=== PATIENT | female | born 1960 | race Caucasian/White ===

== ENCOUNTER → 2017-01-10 | Outpatient (CLI) | payer BC ==
--- NOTE | ~2017-01-10 | CT113 ---
[facility] A Service of [facility] RADIOLOGY TEXT RESULTS PATIENT: FLORY JURADO LOCATION: [facility] : 58 UNIT #: [id number] AGE: [address]: HUGO STEWART MD SEX: F ORDER DR: [id number] [facility]. [place], [place] [address] [id number] O MR#: [id number] Acc #: [id number] NAME: FLORY JURADO : 1960 SEX: F STUDY DATE/TIME: 01/10/2017 16:46 UNIT: [facility] ROOM: STUDY DESCRIPTION: CT Sinuses Wo Contrast Attending Physician: Hugo Stewart M.D. Referring Physician: Hugo Stewart M.D. Ordering Physician: Hugo Stewart M.D. Primary Care Physician: Hugo Stewart M.D. MEDICAL IMAGING REPORT This report is preliminary unless electronic signature is present EXAM Sinus CT. HISTORY Upper respiratory infection, recurrent sinus infections beginning July 2016. TECHNIQUE Thin section imaging was obtained through the sinuses and evaluated at bone window with multiplanar reformats. This CT exam was performed with one or more of the following radiation dose reduction techniques: automatic exposure control, adjustment of mA and/or kV according to patient size, and iterative reconstruction. FINDINGS The sinuses are clear. There is no evidence of ostiomeatal obstruction on either side. The septum deviates to the right. No accessory air cells are seen. No masses or destructive bone lesions are noted. IMPRESSION Septal deviation to the right. Otherwise negative sinus CT. Dictated by... Doe Tejada M.D. THIS IS AN ELECTRONICALLY VERIFIED REPORT Doe Tejada M.D. at 01/11/2017 3:39 PM ZHAO/[email or web address] TD: 01/11/2017 11:39 JOB #: [id number] MEDICAL IMAGING REPORT [facility] A Service of [facility] RADIOLOGY TEXT RESULTS PATIENT: FLORY JURADO LOCATION: [facility] : 58 UNIT #: [id number] AGE: [address]: HUGO STEWART MD SEX: F ORDER DR: Page 1 of 1 COPY
== END | disposition home or self-care (01) ==
LOC: CCAT 16:32
DX: J06.9 Acute upper respiratory infection, unspecified (principal); J34.2 Deviated nasal septum
CPT/HCPCS: 70486